=== PATIENT | male | born 1940 | race Caucasian/White ===

== ENCOUNTER 2017-08-15 12:07 | Inpatient (IN) ==
[2017-08-15] MEDS ORDERED: Morphine Inj 4 MG/ML Vial IV.PUSH ONE ×2 (12:34→14:30)
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
[2017-08-15 13:33] LABS: Baso % (Auto) 0.3 % (0.0-2.0); Eos # (Auto) 0.1 th/mm3 (0.0-0.4); Eos % (Auto) 0.4 % (0.0-4.0); Hematocrit 42.7 % (39.0-51.0); Hemoglobin 13.9 gm/dL (13.0-17.0); Lymph # (Auto) 2.6 th/mm3 (1.0-4.8); Mean Corpuscular HGB Conc 32.6 % (32.0-36.0); Mean Corpuscular Volume 89.1 fL (80.0-100.0); Mean Platelet Volume 9.4 fL (7.0-11.0); Mono # (Auto) 0.9 th/mm3 (0.0-0.9); Mono % (Auto) 7.3 % (0.0-8.0); Neut # (Auto) 8.8 th/mm3 (1.8-7.7); Platelet Count 193 th/mm3 (150-450); Red Cell Distribution Width 16.4 % (11.6-17.2); White Blood Count 12.3 th/mm3 (4.0-11.0)
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
[2017-08-15] MEDS ORDERED: Morphine Sulfate Inj 2 MG/ML Vial IV.PUSH ONE (14:12)
[2017-08-15 15:49] LABS: Blood Urea Nitrogen 20 mg/dL (7-18); Calcium 9.1 mg/dL (8.5-10.1); Chloride 105 meq/L (98-107); Glomerular Filtration Rate 51 mL/min (>89); Glucose,Random 201 mg/dL (74-106); Potassium 4.6 meq/L (3.5-5.1); Sodium 141 meq/L (136-145)
[2017-08-15 15:50] LABS: Anion Gap 17 meq/L (5-15); Carbon Dioxide 19.5 meq/L (21.0-32.0)
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
[2017-08-15] MEDS ORDERED: Bisacodyl 10 MG Supp RECTAL PRN (18:37)
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
--- NOTE | 2017-08-15 19:30 | ECG ---
Date Performed: 08/15/2017 Time Performed: 13:03:04 PTAGE: 76 years EKG: Baseline artifact present Sinus rhythm WITH FREQUENT VENTRICULAR PREMATURE COMPLEXES and PACs/ BORDERLINE LEFT AXIS DEVIATION MINIMAL VOLTA GE CRITERIA FOR LVH, CONSIDER NORMAL VARIANT MODERATE ST DEPRESSION ABNORMAL ECG Compared to prior el ectrocardiogram, The present EKG has marked artifact. Premature atrial and ventricular contractions a re present. DOCTOR: Luigi Villeda Interpretating Date/Time 08/15/2017 19:29:57
[2017-08-15] MEDS: Enoxaparin Inj 30 MG/0.3 ML Syringe SQ SCH (20:35)
[2017-08-15] MEDS: Morphine Sulfate Inj 2 MG/ML Vial IV.PUSH PRN (20:36)
[2017-08-15] MEDS: diazePAM 2 MG Tablet PO SCH (20:36)
[2017-08-15 21:20] LABS: Amphetamine Screen,Urine Neg (Neg); Barbiturate Screen,Urine Neg (Neg); Cannabinoid Screen,Urine Neg (Neg); Cocaine Screen,Urine Neg (Neg); Opiate Screen,Urine Pos (Neg)
[2017-08-15] MEDS: Senna/Docusate Sodium 8.6/50 MG Tablet PO SCH (22:48)
[2017-08-16] MEDS: diazePAM 2 MG Tablet PO SCH ×3 (03:52→18:34)
[2017-08-16] MEDS ORDERED: Chlorhexidine Gluconate 2% 1 Pack (2 Cloths) TOPICAL PRN (04:00)
--- NOTE | 2017-08-16 04:15 | XR ---
EXAM DATE: 08/16/2017 4:07 AM EDT AGE/SEX: 76 years / Male INDICATIONS: Chest pain. CLINICAL DATA: This is the patient's subsequent encounter. Patient reports that signs and symptoms h ave been present for 2 days and indicates a pain score of 5/10. MEDICAL/SURGICAL HISTORY: . Hypertension. None. COMPARISON: [facility] – [place], CHEST 1V SINGLE AP, 08/15/2017. . FINDINGS: Left greater than right basilar consolidation again noted and not significantly changed. Small bilate ral pleural effusions are suspected. I don't see a large effusion. No pneumothorax. Multiple left rib fractures are again seen. Heart size stable, upper limits of normal. CONCLUSION: No significant change mild left greater than right basilar atelectasis. Multiple left rib fractures a gain seen. No pneumothorax. Electronically signed by: Jet Hernandez MD 08/16/2017 4:13 AM EDT
[2017-08-16] MEDS: Chlorhexidine Gluconate 2% 1 Pack (2 Cloths) TOPICAL SCH (04:33)
[2017-08-16 06:23] LABS: Baso % (Auto) 0.2 % (0.0-2.0); Eos % (Auto) 0.1 % (0.0-4.0); Hematocrit 37.4 % (39.0-51.0); Hemoglobin 12.4 gm/dL (13.0-17.0); Lymph # (Auto) 1.4 th/mm3 (1.0-4.8); Lymph % (Auto) 12.4 % (9.0-44.0); Mean Corpuscular HGB Conc 33.2 % (32.0-36.0); Mean Corpuscular Hemoglobin 29.8 pg (27.0-34.0); Mean Platelet Volume 9.3 fL (7.0-11.0); Mono # (Auto) 1.3 th/mm3 (0.0-0.9); Mono % (Auto) 11.8 % (0.0-8.0); Neut # (Auto) 8.3 th/mm3 (1.8-7.7); Neut % (Auto) 75.5 % (16.0-70.0); Platelet Count 141 th/mm3 (150-450); Red Blood Count 4.16 mil/mm3 (4.50-5.90); Red Cell Distribution Width 16.7 % (11.6-17.2); White Blood Count 10.9 th/mm3 (4.0-11.0)
[2017-08-16 06:50] LABS: Calcium 8.9 mg/dL (8.5-10.1); Carbon Dioxide 24.4 meq/L (21.0-32.0); Potassium 4.2 meq/L (3.5-5.1)
[2017-08-16] MEDS ORDERED: Dextrose 50% in Water 50 ML Vial IV.PUSH PRN (07:34)
[2017-08-16] MEDS: Insulin NovoLOG Aspart Correctional Sugar Inj SQ SCH ×4 (08:20→21:07)
[2017-08-16] MEDS: Lidocaine 5% Patch T-DERMAL SCH (08:37)
[2017-08-16] MEDS: Senna/Docusate Sodium 8.6/50 MG Tablet PO SCH ×2 (08:38→20:31)
[2017-08-16] MEDS: Famotidine 20 MG Tablet PO SCH ×2 (08:38→20:31)
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
[2017-08-16] MEDS ORDERED: Folic Acid 1 MG Tablet PO SCH (14:15)
[2017-08-16] MEDS: Doxazosin 4 MG Tablet PO SCH (14:34)
[2017-08-16] MEDS: Finasteride 5 MG Tablet PO SCH (14:34)
[2017-08-16] MEDS: Enoxaparin Inj 30 MG/0.3 ML Syringe SQ SCH (18:33)
[2017-08-16] MEDS ORDERED: Morphine Inj 4 MG/ML Vial ONE (18:57)
[2017-08-16] MEDS: Metoprolol Tartrate 100 MG Tablet PO SCH (20:32)
[2017-08-16] MEDS ORDERED: Ketorolac Inj 30 MG/ML (IVP) Vial IV.PUSH ONE (20:45)
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
[2017-08-17] MEDS: diazePAM 2 MG Tablet PO SCH ×3 (02:57→18:11)
[2017-08-17 04:27] LABS: Baso % (Auto) 0.2 % (0.0-2.0); Eos # (Auto) 0.1 th/mm3 (0.0-0.4); Eos % (Auto) 0.5 % (0.0-4.0); Hematocrit 33.2 % (39.0-51.0); Hemoglobin 11.4 gm/dL (13.0-17.0); Lymph # (Auto) 1.1 th/mm3 (1.0-4.8); Mean Corpuscular HGB Conc 34.2 % (32.0-36.0); Mean Corpuscular Hemoglobin 30.3 pg (27.0-34.0); Mean Corpuscular Volume 88.6 fL (80.0-100.0); Mean Platelet Volume 9.2 fL (7.0-11.0); Mono # (Auto) 0.9 th/mm3 (0.0-0.9); Mono % (Auto) 9.8 % (0.0-8.0); Neut # (Auto) 7.4 th/mm3 (1.8-7.7); Neut % (Auto) 77.5 % (16.0-70.0); Platelet Count 128 th/mm3 (150-450); Red Blood Count 3.75 mil/mm3 (4.50-5.90); Red Cell Distribution Width 16.4 % (11.6-17.2); White Blood Count 9.5 th/mm3 (4.0-11.0)
[2017-08-17 04:33] LABS: Alanine Aminotransferase 24 U/L (12-78); Albumin 2.6 g/dL (3.4-5.0); Alkaline Phosphatase 50 U/L (45-117); Anion Gap 10 meq/L (5-15); Aspartate Aminotransferase 32 U/L (15-37); Blood Urea Nitrogen 34 mg/dL (7-18); Carbon Dioxide 25.4 meq/L (21.0-32.0); Chloride 101 meq/L (98-107); Creatine Kinase 540 U/L (39-308); Glomerular Filtration Rate 49 mL/min (>89); Glucose,Random 181 mg/dL (74-106); Potassium 4.3 meq/L (3.5-5.1); Sodium 136 meq/L (136-145); Total Protein 5.9 g/dL (6.4-8.2)
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
[2017-08-17 04:46] LABS: CKMB Percent 0.4 % (0.0-4.0); Creatine Kinase MB 2.4 ng/mL (0.5-3.6)
[2017-08-17] MEDS: Chlorhexidine Gluconate 2% 1 Pack (2 Cloths) TOPICAL SCH (06:24)
[2017-08-17] MEDS: Levothyroxine 100 MCG Tablet PO SCH (06:24)
[2017-08-17] MEDS: Famotidine 20 MG Tablet PO SCH ×2 (10:27→20:47)
[2017-08-17] MEDS: Metoprolol Tartrate 100 MG Tablet PO SCH ×3 (10:27→20:47)
[2017-08-17] MEDS: Lisinopril 20 MG Tablet PO SCH (10:29)
--- NOTE | 2017-08-17 10:29 | ECG ---
Date Performed: 08/16/2017 Time Performed: 20:56:02 PTAGE: 76 years EKG: Sinus rhythm with PAC(s) Right bundle branch block Inferior ST-T changes are nonspecific Abnormal ECG NO PREVIOUS TRACING DOCTOR: Serge Waters Interpretating Date/Time 08/17/2017 10:27:57
[2017-08-17] MEDS: amLODIPine 10 MG Tablet PO SCH (10:30)
[2017-08-17] MEDS: Senna/Docusate Sodium 8.6/50 MG Tablet PO SCH ×2 (10:30→20:47)
[2017-08-17] MEDS: Finasteride 5 MG Tablet PO SCH (10:30)
[2017-08-17] MEDS: Doxazosin 4 MG Tablet PO SCH (10:30)
[2017-08-17] MEDS: Folic Acid 1 MG Tablet PO SCH (10:32)
[2017-08-17] MEDS: Lidocaine 5% Patch T-DERMAL SCH (10:34)
[2017-08-17] MEDS: Enoxaparin Inj 40 MG/0.4 ML Syringe SQ SCH (10:40)
[2017-08-17 13:07] LABS: Creatine Kinase 534 U/L (39-308)
[2017-08-17 13:19] LABS: CKMB Percent 0.4 % (0.0-4.0); Creatine Kinase MB 2.1 ng/mL (0.5-3.6)
[2017-08-17] MEDS ORDERED: Morphine Inj 4 MG/ML Vial ONE (15:19)
[2017-08-17] MEDS: Morphine Sulfate Inj 2 MG/ML Vial IV.PUSH PRN ×2 (15:23→15:34)
[2017-08-17 16:39] LABS: ABG Base Excess -0.5 mmol/L (-2-2); ABG PCO2 40 mmHg (38-42); ABG PO2 85 mmHg (61-120)
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
[2017-08-17] MEDS ORDERED: Sod Chloride 0.9% Inj 1,000 ML IV.SIG SCH (18:15)
[2017-08-17] MEDS: Insulin NovoLOG Aspart Correctional Sugar Inj SQ SCH (20:45)
[2017-08-17] MEDS: Morphine Inj 4 MG/ML Vial IV.PUSH PRN (23:07)
[2017-08-18] MEDS: diazePAM 2 MG Tablet PO SCH (03:44)
[2017-08-18] MEDS: Morphine Inj 4 MG/ML Vial IV.PUSH PRN ×3 (03:47→22:10)
[2017-08-18 04:19] LABS: Baso % (Auto) 0.5 % (0.0-2.0); Eos # (Auto) 0.1 th/mm3 (0.0-0.4); Eos % (Auto) 0.7 % (0.0-4.0); Hematocrit 30.1 % (39.0-51.0); Lymph # (Auto) 1.1 th/mm3 (1.0-4.8); Lymph % (Auto) 13.9 % (9.0-44.0); Mean Corpuscular HGB Conc 33.3 % (32.0-36.0); Mean Corpuscular Hemoglobin 29.5 pg (27.0-34.0); Mean Corpuscular Volume 88.7 fL (80.0-100.0); Mean Platelet Volume 9.1 fL (7.0-11.0); Mono # (Auto) 0.3 th/mm3 (0.0-0.9); Mono % (Auto) 4.3 % (0.0-8.0); Neut # (Auto) 6.5 th/mm3 (1.8-7.7); Neut % (Auto) 80.6 % (16.0-70.0); Platelet Count 127 th/mm3 (150-450); Red Cell Distribution Width 16.1 % (11.6-17.2)
[2017-08-18 04:37] LABS: Calcium 8.4 mg/dL (8.5-10.1); Carbon Dioxide 24.2 meq/L (21.0-32.0); Potassium 4.4 meq/L (3.5-5.1)
--- NOTE | 2017-08-18 05:14 | XR ---
EXAM DATE: 08/18/2017 5:07 AM EDT AGE/SEX: 76 years / Male INDICATIONS: Shortness of breath. CLINICAL DATA: This is the patient's subsequent encounter. Patient reports that signs and symptoms h ave been present for 3 days and indicates a pain score of 4/10. MEDICAL/SURGICAL HISTORY: Hypertension. Diabetes mellitus type II. Stroke. None. [place] [facility] [place]. . FINDINGS: 2 AP views of the chest. Persistent left lower lobe consolidation versus atelectasis. No evidence of pneumothorax. Possible small left pleural effusion. CONCLUSION: Persistent left lower lobe consolidation versus atelectasis and possible small left pleural effusion. Electronically signed by: Adrián Dsouza MD 08/18/2017 5:12 AM EDT
[2017-08-18] MEDS: Levothyroxine 100 MCG Tablet PO SCH (06:04)
[2017-08-18] MEDS: Chlorhexidine Gluconate 2% 1 Pack (2 Cloths) TOPICAL SCH (06:06)
[2017-08-18] MEDS: Enoxaparin Inj 40 MG/0.4 ML Syringe SQ SCH (09:15)
[2017-08-18] MEDS: Famotidine 20 MG Tablet PO SCH ×2 (09:20→20:42)
[2017-08-18] MEDS: Doxazosin 4 MG Tablet PO SCH (09:21)
[2017-08-18] MEDS: Folic Acid 1 MG Tablet PO SCH (09:21)
[2017-08-18] MEDS: Lidocaine 5% Patch T-DERMAL SCH (09:21)
[2017-08-18] MEDS: Metoprolol Tartrate 100 MG Tablet PO SCH (09:22)
[2017-08-18] MEDS: Senna/Docusate Sodium 8.6/50 MG Tablet PO SCH ×2 (09:22→20:42)
[2017-08-18] MEDS: amLODIPine 10 MG Tablet PO SCH (09:22)
[2017-08-18] MEDS: Lisinopril 20 MG Tablet PO SCH (09:22)
[2017-08-18] MEDS: Finasteride 5 MG Tablet PO SCH (09:23)
--- NOTE | 2017-08-18 11:52 | ECHRPT ---
Indication: Shortness Of Breath CONCLUSIONS Normal left ventricular size. Mild concentric left ventricular hypertrophy. The left ventricular systolic function is normal with an estimated ejection fraction in the range of 60-65%. No regional wall motion abnormalities are present. Mild mitral annular calcification is present. Trace mitral valve regurgitation. Trileaflet aortic valve. Mild sclerosis of the noncoronary cusp. There is trace tricuspid valve regurgitation. The estimated pulmonary arterial pressure is 32 mmHg. BP: / HR: Rhythm: MEASUREMENTS (Male / Female) Normal Values Technical Quality:Technically difficult study 2D ECHO LV Diastolic Diameter PLAX 5.8 cm 4.2 - 5.9 / 3.9 - 5.3 cm LV Systolic Diameter PLAX 4.8 cm IVS Diastolic Thickness 1.3 cm 0.6 - 1.0 / 0.6 - 0.9 cm LVPW Diastolic Thickness 1.1 cm 0.6 - 1.0 / 0.6 - 0.9 cm LV Relative Wall Thickness 0.4 RV Internal Dim ED PLAX 3.8 cm LVOT Diameter 2.3 cm LA Systolic Diameter LX 4.2 cm 3.0 - 4.0 / 2.7 - 3.8 cm M-MODE Aortic Root Diameter MM 2.9 cm LA Systolic Diameter MM 5.0 cm LA Ao Ratio MM 1.7 AV Cusp Separation MM 1.7 cm DOPPLER AV Peak Velocity 151.5 cm/s AV Peak Gradient 9.2 mmHg LVOT Peak Velocity 88.8 cm/s LVOT Peak Gradient 3.2 mmHg AV Area Cont Eq pk 2.4 cm MV Area PHT 3.7 cm Mitral E Point Velocity 76.0 cm/s Mitral A Point Velocity 96.2 cm/s Mitral E to A Ratio 0.8 LV E' Lateral Velocity 7.1 cm/s Mitral E to LV E' Lateral Ratio 10.7 LV E' Septal Velocity 5.0 cm/s Mitral E to LV E' Septal Ratio 15.3 TR Peak Velocity 262.0 cm/s TR Peak Gradient 27.5 mmHg Right Atrial Pressure 10.0 mmHg Pulmonary Artery Systolic Pressu 37.5 mmHg Right Ventricular Systolic Press 37.5 mmHg FINDINGS LEFT VENTRICLE Normal left ventricular size. Mild concentric left ventricular hypertrophy. The left ventricular systolic function is normal with an estimated ejection fraction in the range of 60-65%. No regional wall motion abnormalities are present. RIGHT VENTRICLE Normal right ventricular size and systolic function. LEFT ATRIUM The left atrial size is normal. RIGHT ATRIUM The right atrial size is normal. ATRIAL SEPTUM Normal atrial septal thickness without atrial level shunting by limited color doppler interrogation. AORTA The aortic root and proximal ascending aorta are normal in size on limited imaging. MITRAL VALVE Mild mitral annular calcification is present. Trace mitral valve regurgitation. AORTIC VALVE Trileaflet aortic valve. Mild sclerosis of the noncoronary cusp. TRICUSPID VALVE Structurally normal tricuspid valve. There is trace tricuspid valve regurgitation. The estimated pulmonary arterial pressure is 32 mmHg. PULMONARY VALVE Trivial pulmonary valve regurgitation. VESSELS The inferior vena cava was not well visualized. PERICARDIUM No pericardial effusion. Serge Waters MD (Electronically Signed) Final Date:17 August 2017 11:59
[2017-08-18] MEDS: Insulin NovoLOG Aspart Correctional Sugar Inj SQ SCH ×4 (11:59→20:43)
[2017-08-18] MEDS: Heparin - SQ 10,000 UNITS/ML Vial SQ SCH ×2 (14:04→21:04)
[2017-08-18] MEDS: Methocarbamol 500 MG Tablet PO SCH ×2 (14:04→21:04)
--- NOTE | 2017-08-19 05:00 | XR ---
EXAM DATE: 08/19/2017 4:46 AM EDT AGE/SEX: 76 years / Male INDICATIONS: Shortness of breath. CLINICAL DATA: This is the patient's subsequent encounter. Patient reports that signs and symptoms h ave been present for 3 days and indicates a pain score of Nonresponsive. MEDICAL/SURGICAL HISTORY: . Hypertension. Diabetes mellitus type II. Stroke. None. COMPARISON: [facility] – [place] CHEST 1V SINGLE AP, 08/18/2017. . FINDINGS: Low lung volumes with mild right basilar airspace disease and more dense airspace consolidation in th e left lung base. Persistent mild blunting of the costophrenic angle may reflect some pleural fluid. Cardiomediastinal contours are stable. Remainder of exam is unchanged. CONCLUSION: 1. No significant interval change. 2. Persistent left lower lobe airspace consolidation with probable trace left pleural effusion. 3. Persistent mild right lower lung zone airspace disease, likely atelectasis. Electronically signed by: Cliff Vigil MD 08/19/2017 4:59 AM EDT
[2017-08-19 06:13] LABS: Baso % (Auto) 0.2 % (0.0-2.0); Eos # (Auto) 0.1 th/mm3 (0.0-0.4); Hematocrit 30.5 % (39.0-51.0); Hemoglobin 10.2 gm/dL (13.0-17.0); Lymph % (Auto) 14.6 % (9.0-44.0); Mean Corpuscular HGB Conc 33.4 % (32.0-36.0); Mean Corpuscular Hemoglobin 29.5 pg (27.0-34.0); Mean Corpuscular Volume 88.5 fL (80.0-100.0); Mean Platelet Volume 9.3 fL (7.0-11.0); Mono # (Auto) 0.4 th/mm3 (0.0-0.9); Mono % (Auto) 5.3 % (0.0-8.0); Neut # (Auto) 5.6 th/mm3 (1.8-7.7); Neut % (Auto) 78.9 % (16.0-70.0); Platelet Count 138 th/mm3 (150-450); Red Blood Count 3.45 mil/mm3 (4.50-5.90); Red Cell Distribution Width 16.4 % (11.6-17.2); White Blood Count 7.2 th/mm3 (4.0-11.0)
[2017-08-19] MEDS: Methocarbamol 500 MG Tablet PO SCH ×3 (06:19→21:00)
[2017-08-19] MEDS: Heparin - SQ 10,000 UNITS/ML Vial SQ SCH ×3 (06:19→21:00)
[2017-08-19] MEDS: Levothyroxine 100 MCG Tablet PO SCH (06:19)
[2017-08-19] MEDS: Chlorhexidine Gluconate 2% 1 Pack (2 Cloths) TOPICAL SCH (06:19)
[2017-08-19 06:36] LABS: Albumin 2.3 g/dL (3.4-5.0); Anion Gap 10 meq/L (5-15); Aspartate Aminotransferase 24 U/L (15-37); Blood Urea Nitrogen 36 mg/dL (7-18); Calcium 8.3 mg/dL (8.5-10.1); Carbon Dioxide 22.8 meq/L (21.0-32.0); Chloride 103 meq/L (98-107); Glomerular Filtration Rate 56 mL/min (>89); Glucose,Random 184 mg/dL (74-106); Potassium 4.3 meq/L (3.5-5.1); Sodium 136 meq/L (136-145)
[2017-08-19 06:40] LABS: Alanine Aminotransferase 24 U/L (12-78); Alkaline Phosphatase 54 U/L (45-117); Total Protein 5.9 g/dL (6.4-8.2)
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
[2017-08-19] MEDS: Morphine Inj 4 MG/ML Vial IV.PUSH PRN ×3 (08:47→17:36)
[2017-08-19] MEDS: Doxazosin 4 MG Tablet PO SCH (08:49)
[2017-08-19] MEDS: glipiZIDE 5 MG Tablet PO SCH ×2 (08:49→20:55)
[2017-08-19] MEDS: Folic Acid 1 MG Tablet PO SCH (08:49)
[2017-08-19] MEDS: amLODIPine 10 MG Tablet PO SCH (08:50)
[2017-08-19] MEDS: Senna/Docusate Sodium 8.6/50 MG Tablet PO SCH ×2 (08:50→20:55)
[2017-08-19] MEDS: Lidocaine 5% Patch T-DERMAL SCH (08:50)
[2017-08-19] MEDS: Famotidine 20 MG Tablet PO SCH ×2 (08:50→20:55)
[2017-08-19] MEDS: Lisinopril 20 MG Tablet PO SCH (08:50)
[2017-08-19] MEDS: Finasteride 5 MG Tablet PO SCH (08:51)
[2017-08-19] MEDS: Insulin NovoLOG Aspart Correctional Sugar Inj SQ SCH ×5 (09:11→20:56)
[2017-08-19] MEDS: Ketorolac Inj 30 MG/ML (IVP) Vial IV.PUSH PRN ×2 (13:12→20:58)
--- NOTE | 2017-08-19 14:33 | ECG ---
Date Performed: 08/18/2017 Time Performed: 22:59:02 PTAGE: 76 years EKG: SINUS RYTHMN WITH WHAT APPEARS TO BE WANDERING ATRIAL PACEMAKER. RIGHT BBB Since the previ ous tracing, no significant change noted ABNORMAL ECG PREVIOUS TRACING : 08/16/2017 20.56 DOCTOR: Nestor Vasquez Interpretating Date/Time 08/19/2017 14:32:14
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
[2017-08-20] MEDS: Levothyroxine 100 MCG Tablet PO SCH (05:08)
[2017-08-20] MEDS: Ketorolac Inj 30 MG/ML (IVP) Vial IV.PUSH PRN ×2 (05:08→13:38)
[2017-08-20] MEDS: Heparin - SQ 10,000 UNITS/ML Vial SQ SCH ×3 (05:09→21:17)
[2017-08-20] MEDS: Chlorhexidine Gluconate 2% 1 Pack (2 Cloths) TOPICAL SCH (05:14)
[2017-08-20] MEDS: Methocarbamol 500 MG Tablet PO SCH ×3 (05:14→21:17)
[2017-08-20] MEDS: amLODIPine 10 MG Tablet PO SCH (08:39)
[2017-08-20] MEDS: Doxazosin 4 MG Tablet PO SCH (08:40)
[2017-08-20] MEDS: Famotidine 20 MG Tablet PO SCH ×2 (08:40→20:37)
[2017-08-20] MEDS: Finasteride 5 MG Tablet PO SCH (08:41)
[2017-08-20] MEDS: Lisinopril 20 MG Tablet PO SCH (08:41)
[2017-08-20] MEDS: glipiZIDE 5 MG Tablet PO SCH ×2 (08:41→20:35)
[2017-08-20] MEDS: Lidocaine 5% Patch T-DERMAL SCH (08:43)
[2017-08-20] MEDS: Senna/Docusate Sodium 8.6/50 MG Tablet PO SCH ×2 (08:44→20:34)
[2017-08-20] MEDS: Folic Acid 1 MG Tablet PO SCH (08:44)
[2017-08-20] MEDS: Insulin NovoLOG Aspart Correctional Sugar Inj SQ SCH ×4 (09:08→20:37)
[2017-08-20] MEDS: Morphine Inj 4 MG/ML Vial IV.PUSH PRN ×2 (11:01→13:40)
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
--- NOTE | 2017-08-21 04:12 | XR ---
EXAM DATE: 08/21/2017 4:07 AM EDT AGE/SEX: 76 years / Male INDICATIONS: Shortness of breath. CLINICAL DATA: This is the patient's subsequent encounter. Patient reports that signs and symptoms h ave been present for 4 - 6 days and indicates a pain score of Nonresponsive. MEDICAL/SURGICAL HISTORY: Hypertension. Diabetes mellitus type II. Stroke. None. COMPARISON: [facility] – [place]ST 1V SINGLE AP, 08/19/2017. . FINDINGS: Mild airspace disease in the lower lung zones, left greater than right. Probable trace left pleural e ffusion. Cardiomediastinal contours are stable. Redemonstration of left-sided rib fractures. Remainde r of exam is unchanged. CONCLUSION: 1. No significant interval change. 2. Persistent bilateral lower lung zone airspace disease, left greater than right. 3. Stable small left pleural effusion. Electronically signed by: Cliff Vigil MD 08/21/2017 4:10 AM EDT
[2017-08-21 04:24] LABS: Baso % (Auto) 0.3 % (0.0-2.0); Eos # (Auto) 0.2 th/mm3 (0.0-0.4); Eos % (Auto) 2.6 % (0.0-4.0); Hematocrit 29.6 % (39.0-51.0); Hemoglobin 10.1 gm/dL (13.0-17.0); Lymph # (Auto) 1.5 th/mm3 (1.0-4.8); Lymph % (Auto) 19.5 % (9.0-44.0); Mean Corpuscular Hemoglobin 30.3 pg (27.0-34.0); Mean Corpuscular Volume 89.3 fL (80.0-100.0); Mean Platelet Volume 8.9 fL (7.0-11.0); Mono # (Auto) 0.8 th/mm3 (0.0-0.9); Mono % (Auto) 10.6 % (0.0-8.0); Platelet Count 187 th/mm3 (150-450); Red Blood Count 3.32 mil/mm3 (4.50-5.90); White Blood Count 7.5 th/mm3 (4.0-11.0)
[2017-08-21 04:57] LABS: Alanine Aminotransferase 57 U/L (12-78); Albumin 2.3 g/dL (3.4-5.0); Alkaline Phosphatase 79 U/L (45-117); Anion Gap 9 meq/L (5-15); Aspartate Aminotransferase 56 U/L (15-37); Blood Urea Nitrogen 31 mg/dL (7-18); Calcium 8.9 mg/dL (8.5-10.1); Carbon Dioxide 25.2 meq/L (21.0-32.0); Chloride 105 meq/L (98-107); Glomerular Filtration Rate 63 mL/min (>89); Glucose,Random 92 mg/dL (74-106); Magnesium 2.2 mg/dL (1.5-2.5); Phosphorus 3.3 mg/dL (2.5-4.9); Potassium 4.1 meq/L (3.5-5.1); Sodium 139 meq/L (136-145); Total Protein 6.4 g/dL (6.4-8.2)
[2017-08-21] MEDS: Levothyroxine 100 MCG Tablet PO SCH (06:19)
[2017-08-21] MEDS: Heparin - SQ 10,000 UNITS/ML Vial SQ SCH ×3 (06:19→21:21)
[2017-08-21] MEDS: Methocarbamol 500 MG Tablet PO SCH ×3 (06:19→21:24)
[2017-08-21] MEDS: Morphine Inj 4 MG/ML Vial IV.PUSH PRN (06:19)
[2017-08-21] MEDS: Senna/Docusate Sodium 8.6/50 MG Tablet PO SCH ×2 (08:22→21:22)
[2017-08-21] MEDS: Lidocaine 5% Patch T-DERMAL SCH (08:22)
[2017-08-21] MEDS: glipiZIDE 5 MG Tablet PO SCH ×2 (08:22→21:22)
[2017-08-21] MEDS: Lisinopril 20 MG Tablet PO SCH (08:22)
[2017-08-21] MEDS: Famotidine 20 MG Tablet PO SCH ×2 (08:22→21:22)
[2017-08-21] MEDS: amLODIPine 10 MG Tablet PO SCH (08:22)
[2017-08-21] MEDS: Finasteride 5 MG Tablet PO SCH (08:23)
[2017-08-21] MEDS: Doxazosin 4 MG Tablet PO SCH (08:23)
[2017-08-21] MEDS: Folic Acid 1 MG Tablet PO SCH (08:24)
[2017-08-21] MEDS: Insulin NovoLOG Aspart Correctional Sugar Inj SQ SCH ×5 (12:52→21:22)
[2017-08-21] MEDS: Ibuprofen 400 MG Tablet PO SCH ×3 (13:08→23:04)
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
[2017-08-22 03:47] LABS: Baso % (Auto) 0.6 % (0.0-2.0); Eos # (Auto) 0.2 th/mm3 (0.0-0.4); Eos % (Auto) 2.8 % (0.0-4.0); Hematocrit 29.3 % (39.0-51.0); Hemoglobin 9.7 gm/dL (13.0-17.0); Lymph # (Auto) 1.1 th/mm3 (1.0-4.8); Lymph % (Auto) 17.2 % (9.0-44.0); Mean Corpuscular Hemoglobin 29.5 pg (27.0-34.0); Mean Corpuscular Volume 89.5 fL (80.0-100.0); Mono # (Auto) 0.8 th/mm3 (0.0-0.9); Neut # (Auto) 4.3 th/mm3 (1.8-7.7); Neut % (Auto) 66.4 % (16.0-70.0); Platelet Count 199 th/mm3 (150-450); Red Blood Count 3.27 mil/mm3 (4.50-5.90); Red Cell Distribution Width 16.5 % (11.6-17.2); White Blood Count 6.4 th/mm3 (4.0-11.0)
[2017-08-22 04:23] LABS: Calcium 8.4 mg/dL (8.5-10.1); Carbon Dioxide 24.8 meq/L (21.0-32.0); Potassium 3.9 meq/L (3.5-5.1)
[2017-08-22] MEDS: Heparin - SQ 10,000 UNITS/ML Vial SQ SCH ×3 (05:31→22:53)
[2017-08-22] MEDS: Methocarbamol 500 MG Tablet PO SCH ×3 (05:32→22:53)
[2017-08-22] MEDS: Ibuprofen 400 MG Tablet PO SCH ×4 (05:34→22:53)
[2017-08-22] MEDS: Levothyroxine 100 MCG Tablet PO SCH (05:35)
[2017-08-22] MEDS: Insulin NovoLOG Aspart Correctional Sugar Inj SQ SCH ×4 (10:07→19:59)
[2017-08-22] MEDS: Lisinopril 20 MG Tablet PO SCH (10:19)
[2017-08-22] MEDS: Famotidine 20 MG Tablet PO SCH ×3 (10:19→20:01)
[2017-08-22] MEDS: glipiZIDE 5 MG Tablet PO SCH ×3 (10:20→20:00)
[2017-08-22] MEDS: Senna/Docusate Sodium 8.6/50 MG Tablet PO SCH ×3 (10:20→20:01)
[2017-08-22] MEDS: Lidocaine 5% Patch T-DERMAL SCH (10:20)
[2017-08-22] MEDS: Folic Acid 1 MG Tablet PO SCH (12:20)
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
[2017-08-22] MEDS: Finasteride 5 MG Tablet PO SCH ×2 (15:40→16:26)
[2017-08-22] MEDS: Doxazosin 4 MG Tablet PO SCH ×2 (15:40→16:25)
[2017-08-22] MEDS: amLODIPine 10 MG Tablet PO SCH ×2 (15:40→16:26)
[2017-08-23] MEDS: Morphine Inj 4 MG/ML Vial IV.PUSH PRN ×4 (01:34→21:22)
[2017-08-23] MEDS: Ibuprofen 400 MG Tablet PO SCH ×2 (04:27→11:16)
[2017-08-23] MEDS: Levothyroxine 100 MCG Tablet PO SCH ×2 (04:41→06:37)
[2017-08-23] MEDS: Heparin - SQ 10,000 UNITS/ML Vial SQ SCH ×4 (04:41→22:26)
[2017-08-23] MEDS: Methocarbamol 500 MG Tablet PO SCH ×3 (04:43→14:21)
[2017-08-23] MEDS: Insulin NovoLOG Aspart Correctional Sugar Inj SQ SCH ×4 (09:04→22:27)
[2017-08-23] MEDS: glipiZIDE 5 MG Tablet PO SCH ×2 (11:05→22:26)
[2017-08-23] MEDS: Famotidine 20 MG Tablet PO SCH ×2 (11:05→22:27)
[2017-08-23] MEDS: Finasteride 5 MG Tablet PO SCH (11:05)
[2017-08-23] MEDS: Lidocaine 5% Patch T-DERMAL SCH (11:06)
[2017-08-23] MEDS: Doxazosin 4 MG Tablet PO SCH (11:06)
[2017-08-23] MEDS: Senna/Docusate Sodium 8.6/50 MG Tablet PO SCH ×2 (11:06→22:26)
[2017-08-23] MEDS: Lisinopril 20 MG Tablet PO SCH (11:10)
[2017-08-23] MEDS: amLODIPine 10 MG Tablet PO SCH (11:10)
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
--- NOTE | 2017-08-23 13:17 | XR ---
EXAM DATE: 08/23/2017 1:33 AM EDT AGE/SEX: 76 years / Male INDICATIONS: Shortness of breath. CLINICAL DATA: This is the patient's subsequent encounter. Patient reports that signs and symptoms h ave been present for 1 week and indicates a pain score of Nonresponsive. MEDICAL/SURGICAL HISTORY: Hypertension. Diabetes mellitus type II. None. [place] [facility] [place]. . FINDINGS: A single AP view of the chest demonstrates left basilar density. Left-sided rib fractures. The cardio mediastinal contours are unremarkable. CONCLUSION: Stable left basilar density. Electronically signed by: Mk Gonzalez MD 08/23/2017 2:22 AM EDT
[2017-08-23] MEDS: Lisinopril 10 MG Tablet PO SCH (22:27)
[2017-08-24] MEDS: Methocarbamol 500 MG Tablet PO SCH ×3 (00:51→14:13)
[2017-08-24] MEDS: Levothyroxine 100 MCG Tablet PO SCH (05:22)
[2017-08-24] MEDS: Heparin - SQ 10,000 UNITS/ML Vial SQ SCH ×4 (05:22→22:20)
[2017-08-24] MEDS: Morphine Inj 4 MG/ML Vial IV.PUSH PRN (05:30)
[2017-08-24] MEDS: Insulin NovoLOG Aspart Correctional Sugar Inj SQ SCH ×5 (08:26→20:02)
[2017-08-24] MEDS: Senna/Docusate Sodium 8.6/50 MG Tablet PO SCH ×3 (08:27→20:02)
[2017-08-24] MEDS: Famotidine 20 MG Tablet PO SCH ×3 (08:28→20:02)
[2017-08-24] MEDS: Finasteride 5 MG Tablet PO SCH (08:28)
[2017-08-24] MEDS: Lisinopril 10 MG Tablet PO SCH ×3 (08:28→20:02)
[2017-08-24] MEDS: Doxazosin 4 MG Tablet PO SCH (08:28)
[2017-08-24] MEDS: Lidocaine 5% Patch T-DERMAL SCH (08:28)
[2017-08-24] MEDS: glipiZIDE 5 MG Tablet PO SCH ×3 (08:28→20:02)
[2017-08-24] MEDS: Folic Acid 1 MG Tablet PO SCH (08:39)
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
[2017-08-25] MEDS: Heparin - SQ 10,000 UNITS/ML Vial SQ SCH ×3 (05:50→21:32)
[2017-08-25] MEDS: Levothyroxine 100 MCG Tablet PO SCH (05:50)
[2017-08-25] MEDS: Insulin NovoLOG Aspart Correctional Sugar Inj SQ SCH ×5 (08:32→21:05)
[2017-08-25] MEDS: Finasteride 5 MG Tablet PO SCH (08:33)
[2017-08-25] MEDS: Senna/Docusate Sodium 8.6/50 MG Tablet PO SCH ×3 (08:33→21:05)
[2017-08-25] MEDS: Famotidine 20 MG Tablet PO SCH ×3 (08:33→21:05)
[2017-08-25] MEDS: Lisinopril 10 MG Tablet PO SCH ×3 (08:33→21:05)
[2017-08-25] MEDS: glipiZIDE 5 MG Tablet PO SCH ×3 (08:34→21:04)
[2017-08-25] MEDS: Doxazosin 4 MG Tablet PO SCH (08:34)
[2017-08-25] MEDS: Lidocaine 5% Patch T-DERMAL SCH (08:34)
[2017-08-25] MEDS: Folic Acid 1 MG Tablet PO SCH (08:39)
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
[2017-08-25] MEDS: Morphine Inj 4 MG/ML Vial IV.PUSH PRN (18:23)
[2017-08-26] MEDS: Levothyroxine 100 MCG Tablet PO SCH (05:54)
[2017-08-26] MEDS: Heparin - SQ 10,000 UNITS/ML Vial SQ SCH ×3 (05:54→22:05)
[2017-08-26] MEDS: Insulin NovoLOG Aspart Correctional Sugar Inj SQ SCH ×4 (07:29→20:25)
[2017-08-26] MEDS: Lidocaine 5% Patch T-DERMAL SCH (08:39)
[2017-08-26] MEDS: glipiZIDE 5 MG Tablet PO SCH ×2 (08:40→20:23)
[2017-08-26] MEDS: Senna/Docusate Sodium 8.6/50 MG Tablet PO SCH ×2 (08:40→20:24)
[2017-08-26] MEDS: Finasteride 5 MG Tablet PO SCH (08:41)
[2017-08-26] MEDS: Doxazosin 4 MG Tablet PO SCH (08:41)
[2017-08-26] MEDS: Lisinopril 10 MG Tablet PO SCH ×2 (08:41→20:23)
[2017-08-26] MEDS: Famotidine 20 MG Tablet PO SCH ×2 (08:41→20:23)
[2017-08-26] MEDS: Folic Acid 1 MG Tablet PO SCH (10:00)
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
[2017-08-27] MEDS: Levothyroxine 100 MCG Tablet PO SCH (05:08)
[2017-08-27] MEDS: Heparin - SQ 10,000 UNITS/ML Vial SQ SCH ×4 (05:08→21:05)
[2017-08-27] MEDS: Insulin NovoLOG Aspart Correctional Sugar Inj SQ SCH ×4 (08:05→20:56)
[2017-08-27] MEDS: Lidocaine 5% Patch T-DERMAL SCH (08:06)
[2017-08-27] MEDS: Senna/Docusate Sodium 8.6/50 MG Tablet PO SCH ×2 (08:07→20:55)
[2017-08-27] MEDS: glipiZIDE 5 MG Tablet PO SCH ×2 (08:07→20:54)
[2017-08-27] MEDS: Folic Acid 1 MG Tablet PO SCH (08:07)
[2017-08-27] MEDS: Doxazosin 4 MG Tablet PO SCH (08:07)
[2017-08-27] MEDS: Finasteride 5 MG Tablet PO SCH (08:07)
[2017-08-27] MEDS: Famotidine 20 MG Tablet PO SCH ×2 (08:07→20:55)
[2017-08-27] MEDS: Lisinopril 10 MG Tablet PO SCH ×2 (08:10→20:55)
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
[2017-08-28] MEDS: Levothyroxine 100 MCG Tablet PO SCH (05:29)
[2017-08-28] MEDS: Heparin - SQ 10,000 UNITS/ML Vial SQ SCH (05:29)
[2017-08-28] MEDS: Insulin NovoLOG Aspart Correctional Sugar Inj SQ SCH ×2 (08:30→12:19)
[2017-08-28] MEDS: Lidocaine 5% Patch T-DERMAL SCH (08:31)
[2017-08-28] MEDS: Famotidine 20 MG Tablet PO SCH (08:31)
[2017-08-28] MEDS: Senna/Docusate Sodium 8.6/50 MG Tablet PO SCH (08:32)
[2017-08-28] MEDS: Lisinopril 10 MG Tablet PO SCH (08:32)
[2017-08-28] MEDS: Doxazosin 4 MG Tablet PO SCH (08:33)
[2017-08-28] MEDS: glipiZIDE 5 MG Tablet PO SCH (08:33)
[2017-08-28] MEDS: Finasteride 5 MG Tablet PO SCH (08:33)
[2017-08-28] MEDS: Folic Acid 1 MG Tablet PO SCH (08:39)
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
== END 2017-08-28 14:56 ==
LOC: NEPC 12:07 → NEDA 18:01 → N03 21:08 → N07 08-22 17:39
PROVIDERS: ADMIT Surgery; ATTEND Surgery
DX: Y92.410 Unspecified street and highway as the place of occurrence of the external cause; E78.5 Hyperlipidemia, unspecified; J34.2 Deviated nasal septum; D18.1 Lymphangioma, any site; G89.29 Other chronic pain; I11.9 Hypertensive heart disease without heart failure; Z79.82 Long term (current) use of aspirin; Z86.73 Personal history of transient ischemic attack (TIA), and cerebral infarction without residual deficits; S22.42XA Multiple fractures of ribs, left side, initial encounter for closed fracture; M54.9 Dorsalgia, unspecified; Z88.2 Allergy status to sulfonamides; S27.322A Contusion of lung, bilateral, initial encounter; T79.7XXA Traumatic subcutaneous emphysema, initial encounter; N40.0 Benign prostatic hyperplasia without lower urinary tract symptoms; S10.81XA Abrasion of other specified part of neck, initial encounter; S22.019A Unspecified fracture of first thoracic vertebra, initial encounter for closed fracture; J93.83 Other pneumothorax; S50.811A Abrasion of right forearm, initial encounter; I25.10 Atherosclerotic heart disease of native coronary artery without angina pectoris; S22.039A Unspecified fracture of third thoracic vertebra, initial encounter for closed fracture; R26.9 Unspecified abnormalities of gait and mobility; J98.11 Atelectasis; W22.09XA Striking against other stationary object, initial encounter; E11.9 Type 2 diabetes mellitus without complications; V43.52XA Car driver injured in collision with other type car in traffic accident, initial encounter; Z87.891 Personal history of nicotine dependence; Z79.84 Long term (current) use of oral hypoglycemic drugs